=== PATIENT | female | born 1955 | race Caucasian/White ===

== ENCOUNTER 2017-02-09 11:52 | Emergency (ER) | payer MEDICARE ==
[~2017-02-09] VITALS: Ht 154.9 cm; Wt 118.8 kg
[2017-02-09 12:51] LABS: INR 2.43 (0.9-1.15); Prothrombin Time 26.7 sec (9.37-12.3)
[2017-02-09 14:55] VITALS: BP 141/79
== END 2017-02-09 15:15 | disposition home or self-care (01) ==
LOC: ER 11:52
DX: I48.91 Unspecified atrial fibrillation (principal); I10 Essential (primary) hypertension; Z51.81 Encounter for therapeutic drug level monitoring; Z79.01 Long term (current) use of anticoagulants
CPT/HCPCS: 36415; 85610; 85730